=== PATIENT | female | born 1935 | race Caucasian/White ===

== ENCOUNTER 2016-03-17 15:40 | Inpatient (IN) | payer MEDICARE, MEDICAID ==
[2016-03-17] MEDS ORDERED: DUONEB INH ONE ×2 (17:58)
[2016-03-17] MEDS ORDERED: METHYLPRED SOD SUCC 125 MG/2 ML VIAL ONE (17:59)
[2016-03-17] MEDS ORDERED: SODIUM CHLORIDE 0.9% 100 ML IV ONE (20:32)
[2016-03-17] MEDS ORDERED: AZITHROMYCIN 500 MG VIAL IV ONE (20:32)
[2016-03-17] MEDS ORDERED: CEFTRIAXONE 1 GM VIAL ONE (20:32)
[2016-03-17] MEDS ORDERED: SODIUM CHLORIDE 0.9% 250 ML IV ONE (20:32)
[2016-03-17] MEDS ORDERED: SALINE FLUSH 10 ML FLUSH PRN (21:05)
[2016-03-17] MEDS ORDERED: BISACODYL EC 5 MG TAB PO PRN (21:05)
[2016-03-17] MEDS ORDERED: MAG HYDROX 30 ML UDC PO PRN (21:05)
[2016-03-17] MEDS ORDERED: BISACODYL 10 MG SUPP RECTAL PRN (21:05)
[2016-03-17] MEDS ORDERED: ONDANSETRON 4 MG VIAL IV PRN (21:05)
[2016-03-17] MEDS ORDERED: ALU/MAG/SIM 30 ML UDC PO PRN (21:05)
[2016-03-17 22:52] VITALS: BP_SYST 114; BP_SYST 124; RESP 20; TEMP 98.3
[2016-03-17] MEDS: DUONEB INH SCH (23:18)
[2016-03-17 23:22] VITALS: RESP 20
[2016-03-17] MEDS: SODIUM CHLORIDE 0.9% FLUSH BAG 500 ML IV SCH (23:55)
[2016-03-17] MEDS: LEVOFLOXACIN 750 MG/150 ML 150 ML IV SCH (23:55)
[2016-03-18] MEDS ORDERED: MISSING DOSE XX ONE ×2 (00:05→00:35)
[2016-03-18] MEDS: GUAIFEN/DM 10 ML UDC PO PRN ×2 (00:54→20:05)
[2016-03-18] MEDS: METHYLPRED SOD SUCC 40 MG VIAL IV SCH ×4 (00:54→23:21)
[2016-03-18] MEDS: ACETAMINOPHEN 325 MG TAB PO PRN (00:54)
[2016-03-18 00:58] VITALS: Wt 41.7 kg
[2016-03-18] MEDS: DUONEB INH SCH ×6 (02:27→23:03)
[2016-03-18] MEDS ORDERED: LORAZEPAM 0.5 MG TAB PO PRN ×2 (02:35→20:50)
[2016-03-18 04:36] VITALS: BP_SYST 121; RESP 16; TEMP 98.5
[2016-03-18] MEDS: PANTOPRAZOLE 40 MG TAB PO SCH ×2 (06:06→21:07)
[2016-03-18 07:15] VITALS: BP_SYST 115; RESP 20; TEMP 98.2
[2016-03-18] MEDS: SALINE FLUSH 10 ML FLUSH SCH ×2 (08:09→20:06)
[2016-03-18] MEDS: CEFTRIAXONE 1 GM in SODIUM CHLORIDE 0.9% 50 ML IV SCH (08:10)
[2016-03-18] MEDS: LEVOFLOXACIN 750 MG/150 ML 150 ML IV SCH (09:45)
[2016-03-18 11:24] VITALS: BP_SYST 150; RESP 20; TEMP 98.3
[2016-03-18] MEDS ORDERED: GLUCAGON 1 MG VIAL IM PRN (13:40)
[2016-03-18] MEDS ORDERED: DEXTROSE 50% SYRINGE 50 ML IV PRN (13:40)
[2016-03-18] MEDS: LORAZEPAM 0.5 MG TAB PO PRN ×2 (13:46→20:06)
[2016-03-18 14:55] VITALS: BP_SYST 130; RESP 20; TEMP 98.8
[2016-03-18 20:14] VITALS: BP_SYST 134; RESP 18; TEMP 99.3
[2016-03-18] MEDS ORDERED: NITROGLYCERIN SL 0.4 MG TAB SL SCH (20:50)
[2016-03-18] MEDS ORDERED: DUONEB INH PRN (20:50)
[2016-03-18] MEDS: NORTRIPTYLINE 25 MG CAP PO SCH (21:07)
[2016-03-18] MEDS: RANOLAZINE ER 500 MG TAB PO SCH (21:07)
[2016-03-18] MEDS: NEB-ATROVENT INH SCH (23:00)
[2016-03-18 23:41] VITALS: BP_SYST 152; RESP 18; TEMP 98.4
[2016-03-19 02:34] VITALS: BP_SYST 150; RESP 16; TEMP 98
[2016-03-19] MEDS: DUONEB INH SCH ×6 (02:43→23:31)
[2016-03-19] MEDS: SODIUM CHLORIDE 0.9% FLUSH BAG 500 ML IV SCH (05:32)
[2016-03-19] MEDS: PANTOPRAZOLE 40 MG TAB PO SCH ×3 (05:33→20:08)
[2016-03-19] MEDS: ACETAMINOPHEN 325 MG TAB PO PRN (05:33)
[2016-03-19] MEDS: NEB-ATROVENT INH SCH ×4 (07:00→23:00)
[2016-03-19] MEDS ORDERED: MISSING DOSE XX ONE ×2 (07:40→23:10)
[2016-03-19] MEDS: MULTIVITS/MINERALS (THERAGRAN M) TAB PO SCH (08:32)
[2016-03-19] MEDS: Ascorbic Acid 500 MG TAB PO SCH (08:32)
[2016-03-19] MEDS: CHOLECALCIFEROL 1,000 UNITS TAB PO SCH (08:32)
[2016-03-19] MEDS: MELOXICAM 7.5 MG TAB PO SCH (08:33)
[2016-03-19] MEDS: ASPIRIN EC 81 MG TAB PO SCH (08:33)
[2016-03-19] MEDS: guaiFENesin 200 MG TAB PO SCH (08:33)
[2016-03-19] MEDS: RANOLAZINE ER 500 MG TAB PO SCH ×2 (08:33→20:08)
[2016-03-19] MEDS: GABAPENTIN 300 MG CAP PO SCH (08:33)
[2016-03-19] MEDS: OXYBUTYNIN XL 5 MG TAB PO SCH (08:33)
[2016-03-19] MEDS: DILTIAZEM CD 180 MG CAP PO SCH (08:33)
[2016-03-19] MEDS: ISOSORBIDE MONO 60 MG TAB PO SCH (08:33)
[2016-03-19] MEDS: MULTIVITS/MIN (OCUVITE) TAB PO SCH (08:33)
[2016-03-19] MEDS: SALINE FLUSH 10 ML FLUSH SCH ×2 (08:34→20:08)
[2016-03-19] MEDS: CEFTRIAXONE 1 GM in SODIUM CHLORIDE 0.9% 50 ML IV SCH (08:34)
[2016-03-19] MEDS: METHYLPRED SOD SUCC 40 MG VIAL IV SCH ×3 (08:35→23:01)
[2016-03-19] MEDS: FLUTICASONE 0.05% NA BTL NARE EACH SCH (08:35)
[2016-03-19 09:28] VITALS: BP_SYST 145; RESP 16; TEMP 98.2
[2016-03-19 11:20] VITALS: BP_SYST 113; RESP 18; TEMP 98
[2016-03-19 14:56] VITALS: BP_SYST 109; RESP 18; TEMP 98.2
[2016-03-19 19:07] VITALS: BP_SYST 118; RESP 16; TEMP 98.5
[2016-03-19] MEDS: NORTRIPTYLINE 25 MG CAP PO SCH (20:07)
[2016-03-20] MEDS: GUAIFEN/DM 10 ML UDC PO PRN (00:51)
[2016-03-20] MEDS: ACETAMINOPHEN 325 MG TAB PO PRN (00:52)
[2016-03-20] MEDS: LORAZEPAM 0.5 MG TAB PO PRN (00:59)
[2016-03-20] MEDS: DUONEB INH SCH ×3 (02:50→10:36)
[2016-03-20 03:18] VITALS: BP_SYST 113; RESP 18; TEMP 98.4
[2016-03-20] MEDS: SODIUM CHLORIDE 0.9% FLUSH BAG 500 ML IV SCH (06:02)
[2016-03-20 07:56] VITALS: BP_SYST 137; RESP 20; TEMP 98
[2016-03-20] MEDS: METHYLPRED SOD SUCC 40 MG VIAL IV SCH (08:00)
[2016-03-20] MEDS: SALINE FLUSH 10 ML FLUSH SCH (08:32)
[2016-03-20] MEDS: FLUTICASONE 0.05% NA BTL NARE EACH SCH (08:32)
[2016-03-20] MEDS: guaiFENesin 200 MG TAB PO SCH (08:32)
[2016-03-20] MEDS: CEFTRIAXONE 1 GM in SODIUM CHLORIDE 0.9% 50 ML IV SCH (08:32)
[2016-03-20] MEDS: OXYBUTYNIN XL 5 MG TAB PO SCH (08:33)
[2016-03-20] MEDS: MELOXICAM 7.5 MG TAB PO SCH (08:33)
[2016-03-20] MEDS: CHOLECALCIFEROL 1,000 UNITS TAB PO SCH (08:33)
[2016-03-20] MEDS: MULTIVITS/MINERALS (THERAGRAN M) TAB PO SCH (08:33)
[2016-03-20] MEDS: GABAPENTIN 300 MG CAP PO SCH (08:33)
[2016-03-20] MEDS: Ascorbic Acid 500 MG TAB PO SCH (08:33)
[2016-03-20] MEDS: DILTIAZEM CD 180 MG CAP PO SCH (08:33)
[2016-03-20] MEDS: RANOLAZINE ER 500 MG TAB PO SCH (08:33)
[2016-03-20] MEDS: ISOSORBIDE MONO 60 MG TAB PO SCH (08:33)
[2016-03-20] MEDS: ASPIRIN EC 81 MG TAB PO SCH (08:33)
[2016-03-20] MEDS: PANTOPRAZOLE 40 MG TAB PO SCH (08:33)
[2016-03-20] MEDS: MULTIVITS/MIN (OCUVITE) TAB PO SCH (08:33)
[2016-03-20] MEDS ORDERED: LEVOFLOXACIN 750 MG TAB PO SCH (09:00)
[2016-03-20 10:59] VITALS: BP_SYST 137; RESP 20; TEMP 98
[2016-03-20 11:44] VITALS: BP_SYST 122; RESP 16; TEMP 98.3
[2016-03-25] MEDS ORDERED: ALENDRONATE 70 MG TAB PO SCH (07:00)
== END 2016-03-20 13:43 | disposition home or self-care (01) | DRG 190 ==
LOC: ENRESERVTM → ENRESERVDT → ER 15:40 → EMR 21:03 → ENPENDDIS 21:03 → 4NT 22:40
PROVIDERS: ADMIT Internal Medicine; ATTEND Internal Medicine
CPT/HCPCS: 71010; 71020; 80053; 82947; 85025; 93005; 94640; 94799; 96365; 96367; 96375; 99222; 99232; 99239